=== PATIENT | female | born 1955 | race Caucasian/White ===

== ENCOUNTER → 2017-07-27 | Outpatient (CLI) | payer OTHER ==
--- NOTE | 2017-07-27 08:56 | DIAGNOSTIC IMAGING REPORT ---
L FOOT MIN 3 VIEWS ROUTINE CLINICAL HISTORY: M79.672 left foot pain COMPARISON: None. DISCUSSION: The bones are mildly osteopenic. No acute fractures are visualized. There are minimal degenerative changes the level the first metatarsal phalangeal joint. There is minimal soft tissue swelling at this level. There is no erosive disease. IMPRESSION: 1. No acute fractures 2. No evidence of erosive disease. Electronically signed by: Simeon Kauffman M.D. 07/27/2017 8:55 AM Dictated Date/Time: 07/27/2017 8:54 AM
== END | disposition home or self-care (01) ==
LOC: C.RAD1850 08:43
PROVIDERS: ATTEND Family Medicine
DX: M79.672 Pain in left foot (principal)